=== PATIENT | male | born 1995 | race Caucasian/White ===

== ENCOUNTER 2020-04-10 01:38 | Emergency (ER) | payer OTHER ==
[~2020-04-10] VITALS: Ht 177.8 cm; Wt 72.6 kg
[2020-04-10 02:40] VITALS: BP 128/70
--- NOTE | 2020-04-10 16:16 | EKG ---
[place] [address] ELECTROCARDIOGRAM REPORT Name: KERRI TURCIOS Room: [facility]#: [id number] Admission: 04/10/20 Attend Phys: Discharge: 04/10/20 Date of : 89 Date of Service: 04/10/20 0153 Report #: [id number] THIS REPORT FOR: //name// [facility] ED Test Date: 2020-04-10 Test Time: 01:53:22 Pat Name: KERRI TURCIOS Department: Room: Gender: Lunch Counter Manager: FANNY : 1995 Requested By: Radha Greco Order Number: [id number] MD: Ronnell Navarro Measurements Intervals [place] Rate: 107 P: -21 [place]: 119 QRS: 70 QRSD: 93 T: 15 QT: 338 QTc: 451 Interpretive Statements Sinus tachycardia RSR' in V1 or V2, probably normal variant Borderline T wave abnormalities No previous ECG available for comparison Electronically Signed On 04-10-2020 16:16:26 WET END OPERATOR by Ronnell Navarro [email or web address] <ELECTRONICALLY SIGNED> By: Rnonell Navarro MD, [facility] 04/10/20 1616 0153 0153 Ronnell Navarro MD, [facility] /EPI
== END 2020-04-10 02:40 ==
LOC: M.ERS 01:38
DX: R45.1 Restlessness and agitation (principal); Z71.1 Person with feared health complaint in whom no diagnosis is made

== ENCOUNTER 2020-04-10 17:28 | Emergency (ER) | payer OTHER ==
[~2020-04-10] VITALS: Ht 177.8 cm; Wt 90.7 kg
[2020-04-10 18:51] VITALS: BP 143/78
== END 2020-04-10 18:52 ==
LOC: M.ERS 17:28
DX: R11.2 Nausea with vomiting, unspecified (principal)